=== PATIENT | female | born 2000 | race African-American/Black ===

== ENCOUNTER 2023-07-29 16:12 | Emergency (ER) | payer OTHER ==
[~2023-07-29] VITALS: Ht 167.6 cm; Wt 72.6 kg
[2023-07-29] MEDS ORDERED: TETRAcaine 5 ML BOTTLE ONE (17:03)
[2023-07-29] MEDS ORDERED: FLUORESCEIN SODIUM OPHTH 1 EA STRIP ONE (17:05)
[2023-07-29] MEDS: FLUORESCEIN SODIUM OPHTH 1 EA STRIP OP ONE (17:06)
[2023-07-29] MEDS: TETRACAINE HCL 0.5% OPHTALMIC 15 ML BOTTLE OP ONE (17:08)
[2023-07-29] MEDS ORDERED: POLY10DR OP (17:20)
[2023-07-29 17:29] VITALS: BP 128/74; TEMP 98; O2SAT 100
== END 2023-07-29 17:32 | disposition home or self-care (01) ==
LOC: ER 16:29
DX: S05.02XA Injury of conjunctiva and corneal abrasion without foreign body, left eye, initial encounter (principal); S05.01XA Injury of conjunctiva and corneal abrasion without foreign body, right eye, initial encounter; Z60.2 Problems related to living alone; X58.XXXA Exposure to other specified factors, initial encounter; Y93.89 Activity, other specified; Y92.89 Other specified places as the place of occurrence of the external cause; Y99.8 Other external cause status